=== PATIENT | female | born 1985 | race Caucasian/White ===

== ENCOUNTER 2016-03-22 19:38 | Emergency (ER) | payer MEDICAID, OTHER ==
[~2016-03-22] VITALS: Ht 165.1 cm; Wt 137.4 kg
[2016-03-22 20:36] VITALS: BP 102/58
--- NOTE | 2016-03-22 23:54 | NUR ---
AMBULATED TO ER BED 2
--- NOTE | 2016-03-23 | NUR ---
PATIENT PRESENTS TO ED WITH C.O. FLU LIKE SYMPTOMS, COMPLAINT OF VOMITING, DIARRHEA, BODY ACHES, HEADACHE, AND DECREASED APPETITE FOR X1 DAY. SKIN IS PINK/WARM/DRY; AAOX4 WITH EVEN AND STEADY GAIT; LUNGS CLEAR BL; HR EVEN AND REGULAR; PT DENIES ANY FEVER, CP, SOB, OR COUGH AT THIS TIME; PATIENT STATES PAIN OF 5/10 AT THIS TIME; VSS; PATIENT POSITIONED FOR COMFORT; HOB ELEVATED; BEDRAILS UP X2; BED DOWN. ER MD MADE AWARE OF PT STATUS.
--- NOTE | 2016-03-23 00:01 | NUR ---
DR. MCINTOSH AT PT BEDSIDE SEEING PT.
[2016-03-23] MEDS ORDERED: NACL 0.9% 1,000 ML IV ONE (00:20)
[2016-03-23] MEDS ORDERED: KETOROLAC 30 MG/ML VIAL IVP ONE (00:20)
[2016-03-23] MEDS ORDERED: ONDANSETRON 4 MG/2 ML VIAL IVP ONE (00:20)
--- NOTE | 2016-03-23 01:20 | NUR ---
IV removed, catheter intact and site benign. Applied folded 4x4 gauze and tape to stop bleeding.
[2016-03-23 01:25] VITALS: BP 118/27
--- NOTE | 2016-03-23 01:25 | NUR ---
Patient discharged with v/s stable. Written and verbal after care instructions given and explained. Patient alert, oriented and verbalized understanding of instructions. Ambulatory with steady gait. All questions addressed prior to discharge. ID band removed. Patient advised to follow up with PMD. Rx of ZOFRAN ODT 4MG 1 TAB EVERY 8 HOURS, MOTRIN 800MG 1 TAB 3 TIMES A DAY, IMODIUM A-D 2MG CAPLET, 1 TO 2 TABS 3 TIMES A DAY NEEDED given. Patient educated on indication of medication including possible reaction and side effects. Opportunity to ask questions provided and answered.
== END 2016-03-23 01:25 | disposition home or self-care (01) ==
LOC: MED 19:38
PROC: 3E033GC Introduction of Other Therapeutic Substance into Peripheral Vein, Percutaneous Approach (ICD-10-PCS; principal; 2016-03-22)
DX: A08.4 Viral intestinal infection, unspecified (principal); I10 Essential (primary) hypertension
CPT/HCPCS: 81025; 96374; 96375; 99284; J1885; J2405; J7030

== ENCOUNTER 2019-07-03 16:18 | Emergency (ER) | payer MEDICAID, OTHER ==
[~2019-07-03] VITALS: Ht 165.1 cm; Wt 144.7 kg
--- NOTE | 2019-07-03 16:25 | NUR ---
DONNELL JACOB AT BEDSIDE EVALUATING PT
[2019-07-03 16:44] VITALS: BP 145/98
--- NOTE | 2019-07-03 16:50 | NUR ---
33 Y/O FEMALE PRESENTED TO ED C/O LOWER LEFT SIDED BACK PAIN X5 DAYS. PT STATES ON TUESDAY SHE WAS JUMPING INTO A JEEP AND THE NEXT DAY SHE STARTED FEELING THE LEFT SIDED BACK PAIN. PT RATES PAIN 7/10 , STATES IT STARTED RADIATING DOWN HER LEFT LEG TO HER LEFT ANKLE. PT DESCRIBES PAIN STABBING AND THE LEG PAIN TINGLING , "LIKE HER LEG HAS FALLING ASLEEP. PT PEDAL PULSES BL STRONG +4 , CAPILLARY REFIL <3SEC. PT BREATHING EVEN AND UNLABORED. A/O X4. PT STATES SHE HAS MEDICATION FOR DM BUT HAS NOT TAKEN HER MEDS TODAY. PT RESTING IN BED AT LOWEST POSITION, HOB ELEVATED, SIDE RAILS x1. HX: DM, RIGHT FOOT DIABETIC NEUROPATHY
[2019-07-03] MEDS ORDERED: NACL 0.9% 1,000 ML IV ONE (17:10)
[2019-07-03] MEDS ORDERED: KETOROLAC 30 MG/ML VIAL IVP ONE (17:15)
--- NOTE | 2019-07-03 17:18 | NUR ---
PT TAKEN TO X-RAY VIA WHEELCHAIR.
--- NOTE | 2019-07-03 17:30 | NUR ---
pt returned from xray. pt resting in bed at lowest position, HOB elevated , side rails x1.
[2019-07-03 18:04] LABS: BASOPHILS # (AUTO) 0.1 K/uL (0.00-0.22); BASOPHILS % (AUTO) 0.6 % (0.0-2.0); EOSINOPHILS # (AUTO) 0.7 K/uL (0-0.4); EOSINOPHILS % (AUTO) 7.8 % (0.0-4.0); HEMATOCRIT 42.4 % (36-48); HEMOGLOBIN 14.1 g/dL (12.0-16.0); LYMPHOCYTES # (AUTO) 2.7 K/uL (2.5-16.5); LYMPHOCYTES % (AUTO) 28.9 % (20.5-51.1); MEAN CORPUSCULAR HEMOGLOBIN 27 pg (27-31); MEAN CORPUSCULAR HGB CONC 33 g/dL (33-37); MEAN CORPUSCULAR VOLUME 81.7 fL (80-94); MONOCYTES # (AUTO) 0.4 K/uL (0.8-1.0); MONOCYTES % (AUTO) 4.3 % (1.7-9.3); NEUTROPHILS # (AUTO) 5.5 K/uL (1.8-7.7); NEUTROPHILS % (AUTO) 58.4 % (42.2-75.2); PLATELET COUNT (AUTO) 235 K/uL (140-450); RED BLOOD CELL COUNT(AUTO) 5.19 MIL/uL (4.20-5.40); RED CELL DISTRIBUTION WIDTH 14.4 % (11.6-13.7); WHITE BLOOD COUNT (AUTO) 9.4 K/uL (4.8-10.8)
--- NOTE | 2019-07-03 18:31 | NUR ---
PT RESTING IN BED, NO NEW NEEDS AT THIS TIME
[2019-07-03 18:54] VITALS: BP 140/91
[2019-07-03 18:54] LABS: ALBUMIN 3.2 g/dL (3.4-5.0); ANION GAP 15.8 (8-16); CARBON DIOXIDE 23.8 mmol/L (21-32); CREATININE 0.9 mg/dL (0.6-1.3); POTASSIUM 3.6 mmol/L (3.5-5.1); TOTAL BILIRUBIN 0.3 mg/dL (0.0-1.0)
--- NOTE | 2019-07-03 18:58 | NUR ---
Patient discharged with v/s stable. Written and verbal after care instructions given and explained. Patient alert, oriented and verbalized understanding of instructions. Ambulatory with steady gait. All questions addressed prior to discharge. ID band removed. Patient advised to follow up with PMD. Rx of robaxin, & motrin given. Patient educated on indication of medication including possible reaction and side effects. Opportunity to ask questions provided and answered.
== END 2019-07-03 18:58 | disposition home or self-care (01) ==
LOC: MED 16:18
DX: M54.5 Low back pain (principal); M54.30 Sciatica, unspecified side; E11.65 Type 2 diabetes mellitus with hyperglycemia; W17.89XA Other fall from one level to another, initial encounter; Y93.89 Activity, other specified; Y92.89 Other specified places as the place of occurrence of the external cause; Y99.8 Other external cause status
CPT/HCPCS: 36415; 72100; 80053; 81002; 81025; 85025; 96361; 96374; 99284; J1885; J7030